=== PATIENT | female | born 1950 | race Hispanic/Latino ===

== ENCOUNTER 2016-09-05 23:46 | Emergency (ER) | payer MEDICAID, MEDICARE, OTHER ==
[~2016-09-05] VITALS: Ht 139.7 cm; Wt 54.5 kg
[~2016-09-05 23:46] MED LIST: ALBU8.5H2 INHALATION; ATOR80TA PO; DICY20TA33 PO; DILT120C86 PO; ESOM40CA41 PO; FAMO20TA4 PO; IMI100 PO; LISI1TAB11 PO; METO-272 PO; ONDA8TAB10 PO; OXYC15TA79 PO; POTA20TA16 PO
[2016-09-05 23:52] VITALS: BP 133/71; RESP 24; O2SAT 100
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
[2016-09-06 00:08] LABS: Mean Corpuscular Volume 103.1 fL (81-100)
[2016-09-06 00:09] LABS: BASOPHILS % (AUTO) 1.2 % (0-3); EOSINOPHILS % (AUTO) 2.3 % (0-5); MONOCYTES % (AUTO) 10.2 % (4-12); Mean Corpuscular Hemoglobin 36.5 pg (27.0-35.0); NEUTROPHILS % (AUTO) 35.8 % (40-74); Platelet Count 140 bil/L (150-400)
[2016-09-06 00:24] LABS: TROPONIN T 0.01 ug/L (0.0-0.011)
[2016-09-06] MEDS ORDERED: Pantoprazole 4 mg/mL 10 mL Inj IVPUSH ONE ×2 (00:30→06:00)
[2016-09-06 00:35] LABS: Magnesium 1.7 mg/dL (1.6-2.6)
[2016-09-06] MEDS ORDERED: LidocaineVisc 2%:Antacid 1:1 10 mL Syringe PO ONE (02:10)
[2016-09-06 04:43] VITALS: BP 99/55; PULSE 69; RESP 16; O2SAT 91
[2016-09-06] MEDS ORDERED: chlordiazePOXIDE 25 mg Capsule PO ONE (06:00)
[2016-09-06] MEDS ORDERED: Alum-Mag Hydrox-Simeth 30 mL Suspension PO ONE (06:00)
[2016-09-06] MEDS ORDERED: CHLO25CA10 PO (06:02)
[2016-09-06] MEDS ORDERED: ESOM20CA28 PO (06:02)
[2016-09-06 06:27] VITALS: BP 115/71; PULSE 62; RESP 16; O2SAT 96
--- NOTE | 2016-09-06 07:51 | DRSVH ---
PROCEDURE: CT ANGIO CHEST PULMONARY EMBOLISM ([id number]) INDICATIONS: 66 year-old female with shortness of breath, tachycardia, and elevated d-dimer level. TECHNIQUE: After the administration of intravenous contrast, 2 mm thick sections acquired from the pulmonary api vignesh to the posterior costophrenic angles. 3-dimensional maximum intensity projection (MIP) coronal a nd sagittal reformats were then acquired through the thorax. For radiation dose reduction, the follo wing was used: automated exposure control, adjustment of mA and/or kV according to patient size. COMPARISON: [facility], CT, CT ABD PELVIS W CON, 04/07/2015, 22:24. FINDINGS: Preliminary interpretation rendered by [facility]. Image quality: Excellent. Pulmonary arteries: Pulmonary arteries are normal in size, and demonstrate no intraluminal filling d efects to suggest central pulmonary embolism. Lungs and pleura: Lungs are clear, with bronchovascular crowding from incomplete inspiratory effort. No pleural effusions or pneumothorax. Central and peripheral airways are patent. Mediastinum: Heart size is normal, without pericardial effusion. No mediastinal or hilar adenopathy . Thoracic aorta is normal in caliber and enhancement. Esophagus is normal in caliber, without hiat al hernia. Bones and chest wall: No suspicious bony lesions. Ribs and thoracic spine appear intact throughout. There is mid and lower thoracic spine disc degeneration. Thyroid gland is normal in size. No axill eugene or supraclavicular adenopathy. Abdomen: Several small dependent calcified gallstones are now present. Other visualized upper abdomi nal solid organs appear normal in the early arterial phase of enhancement. IMPRESSION: 1. No evidence for central pulmonary embolism. No acute pulmonary disease. 2. Small dependent calcified gallstones are now present. No significant discrepancy with preliminary [facility] report. Dictated by: Krishna Bush M.D. on 09/06/2016 at 7:42 Approved by: Krishna Bush M.D. on 09/06/2016 at 7:50
--- NOTE | 2016-09-06 08:50 | DRSVH ---
PROCEDURE: X-RAY CHEST ONE VIEW, PORTABLE ([id number]) INDICATIONS: chest pain TECHNIQUE: One view of the chest was acquired. COMPARISON: [facility], CT, CT ANGIO CHEST PE, 09/06/2016, 4:08. FINDINGS: Surgical changes and devices: None. Lungs and pleura: No pleural effusions or pneumothorax. Lungs are clear. Mediastinum: Mediastinal contours appear normal. Heart size is normal. Bones and chest wall: No suspicious bony lesions. Overlying soft tissues appear unremarkable. IMPRESSION: No acute cardiopulmonary disease. Dictated by: Adarsh Barber [facility] Interpreted: Karolina Madrid MD on 09/06/2016 at 8:49 Transcribed by: MADISON on 09/06/2016 at 8:50 Approved by: Karolina Madrid MD, PhD on 09/06/2016 at 16:42
== END 2016-09-06 06:28 | disposition home or self-care (01) ==
LOC: EDBD 23:46 → SED 23:46
DX: R07.2 Precordial pain (principal); R10.13 Epigastric pain; F10.129 Alcohol abuse with intoxication, unspecified; F17.200 Nicotine dependence, unspecified, uncomplicated; K21.9 Gastro-esophageal reflux disease without esophagitis; I10 Essential (primary) hypertension; E78.5 Hyperlipidemia, unspecified; K80.20 Calculus of gallbladder without cholecystitis without obstruction; Z86.73 Personal history of transient ischemic attack (TIA), and cerebral infarction without residual deficits; Z88.5 Allergy status to narcotic agent
CPT/HCPCS: 36415; 71010; 71275; 80053; 83690; 83735; 84484; 85025; 85378; 93005; 96374; 96376; 99285; Q9967